=== PATIENT | female | born 1995 | race Hispanic/Latino ===

== ENCOUNTER 2018-11-29 15:36 | Emergency (ER) | payer OTHER, SELFPAY ==
[2018-11-29 16:03] VITALS: BP 103/70; PULSE 68; RESP 20; TEMP 36.6; O2SAT 100
--- NOTE | 2018-11-29 16:10 | DI.US.S_ITS ---
PROCEDURE: US PELVIC COMPLETE INDICATIONS: PAIN TECHNIQUE: Real-time scanning was performed of the pelvic organs, with image documentation. Additional endovaginal scanning was necessary due to incomplete visualization of the adnexal and endometrial structures by transabdominal scanning. COMPARISON: None. FINDINGS: Transabdominal scanning: Limited scanning through the kidneys shows no hydronephrosis. There is small amount of complex free pelvic fluid in the cul-de-sac. Endovaginal scanning: Uterus: Uterus is normal in size at 6.7 x 3.2 x 6.2 cm. The endometrium measures 13.2 mm in combined thickness. Ovaries: There is a 4.3 x 2.7 x 4.1 cm complex cyst in the left ovary. Left ovary measures 5.4 x 4.7 x 6.2 cm. Right ovary is normal in size and echotexture measuring 4.5 x 3.0 x 2.6 cm. IMPRESSION: 1. Thickened endometrial. This finding may be related to menstrual cycle or endometrial hyperplasia. 2. A 4.3 x 2.7 x 4.1 cm complex cyst in the left ovary. Recommend ultrasound followup if clinically indicated. 3. A small amount of complex free fluid in the cul-de-sac. Dictated by: Gary Nagel M.D. on 11/29/2018 at 17:56 Approved by: Gary Nagel M.D. on 11/29/2018 at 18:02
--- NOTE | 2018-11-29 17:01 | ED_ITS ---
HPI - Abdominal Pain General Chief Complaint: Abdominal Pain Stated Complaint: LLQ Pain Time Seen by Provider: 11/29/18 16:10 Source: patient Mode of arrival: ambulatory Limitations: no limitations History of Present Illness HPI narrative: 23-year-old otherwise healthy female sent over from [facility] for evaluation of left lower quadrant abdominal pain. The concern by the provider over on the [place] was that the patient had an ovarian cyst however they did not have ultrasound capability there was concern for ovarian torsion. She had labs performed which were reviewed which were unremarkable to include a test and urinalysis. Patient states she has not had a menstrual cycle in 3 months. She is not currently on control pills. She has never been the past. Denies any vaginal bleeding vaginal discharge or urinary symptoms or GI symptoms. Review of Systems Constitutional Constitutional: Denies fever(s) and Denies headache(s) ENT Ears, Nose, Mouth, and Throat: Denies headache(s) Cardiovascular Cardiovascular: Denies chest pain and Denies dyspnea Respiratory Respiratory: Denies dyspnea Gastrointestinal Gastrointestinal: Reports abdominal pain (Left lower quadrant), Denies change in stool character, Denies nausea and Denies vomiting Genitourinary Genitourinary: Denies dysuria and Denies vaginal discharge Musculoskeletal Musculoskeletal: Denies myalgias and Denies arthralgias Integumentary/Breasts Skin/Breast: Denies lesions and Denies rash Neurologic Neurologic: Denies behavioral changes and Denies headache(s) Psychiatric Psychiatric: Denies behavioral changes Hematologic/Lymphatic Hematologic/Lymphatic: Denies easy bleeding and Denies easy bruising [facility] Medical History Patient denies medical problems (Acute) Social History Smoking Status: Never smoker Social History Smoking Status: Never smoker Exam Initial Vital Signs Initial Vital Signs: Vital Signs Temperature 97.8 F 11/29/18 16:03 Pulse Rate 68 11/29/18 16:03 Respiratory Rate 20 11/29/18 16:03 Blood Pressure 103/70 11/29/18 16:03 Pulse Oximetry 100 11/29/18 16:03 Const General: cooperative, comfortable and well developed Orientation: alert, awake and oriented x3 HENMT Head: normal to inspection and normocephalic Resp Effort & Inspection: normal respiratory effort Cardio Rate: regular rate GI Inspection: non-distended Skin Lesions: no lesions Rashes: no rashes Neuro General: alert and awake Cognition: normal cognition Speech: speech normal Extrem General: normal to inspection and capillary refill normal Psych Appearance: grossly normal and well kempt Course Orders Ordered: ED Orders 11/29/18 16:10 US pelvic complete Stat Vital Signs Vital signs: Vital Signs - 8 hr 11/29/18 16:03 Temperature 97.8 F Pulse Rate 68 Respiratory Rate 20 Blood Pressure 103/70 Pulse Oximetry 100 MDM - Abdominal Pain Medical Records Attestation: I reviewed the patient's medical records. Lab Data Attestation: I reviewed the patient's lab results. Imaging Data US - abdomen: Radiologist's impression: [address] [address] Ultrasound Report Signed Patient: Mervat Chowdhury CMR#: [id number] : 1995Acct:[id number] Age/Sex: 23 / FDate of Service: 11/29/18 Loc: ED Accession Number: [id number] Procedure: US pelvic complete Ordering Provider: Joseluis Dunne D.O. PROCEDURE: US PELVIC COMPLETE INDICATIONS: PAIN TECHNIQUE: Real-time scanning was performed of the pelvic organs, with image documentation. Additional endovaginal scanning was necessary due to incomplete visualization of the adnexal and endometrial structures by transabdominal scanning. COMPARISON: None. FINDINGS: Transabdominal scanning: Limited scanning through the kidneys shows no hydronephrosis. There is small amount of complex free pelvic fluid in the cul-de-sac. Endovaginal scanning: Uterus: Uterus is normal in size at 6.7 x 3.2 x 6.2 cm. The endometrium measures 13.2 mm in combined thickness. Ovaries: There is a 4.3 x 2.7 x 4.1 cm complex cyst in the left ovary. Left ovary measures 5.4 x 4.7 x 6.2 cm. Right ovary is normal in size and echotexture measuring 4.5 x 3.0 x 2.6 cm. IMPRESSION: 1. Thickened endometrial. This finding may be related to menstrual cycle or endometrial hyperplasia. 2. A 4.3 x 2.7 x 4.1 cm complex cyst in the left ovary. Recommend ultrasound followup if clinically indicated. 3. A small amount of complex free fluid in the cul-de-sac. Dictated by: Gary Nagel M.D. on 11/29/2018 at 17:56 Approved by: Gary Nagel M.D. on 11/29/2018 at 18:02 [facility] Narrative Medical decision making narrative: Patient's test and urinalysis were negative at the outside facility. I was able to review these nodes. Her ultrasound today does show a left-sided ovarian cyst however no signs of torsion. We did discuss the use of anti-inflammatories. I did discuss the diagnosis with the patient. Informed her that when she returned home to the [facility] she needed to talk with her primary provider about further workup of her amenorrhea for the past 3 months. Patient was given return precautions and follow-up instructions. She expressed understanding and agreem ent with plan. Discharge Plan Departure Patient Disposition: Home Clinical Impression: Ovarian cyst Qualifiers: Laterality: left Qualified Code(s): N83.202 - Unspecified ovarian cyst, left side Instructions: DI for Ovarian Cyst Activity Restrictions/Additional Instructions: You can take Tylenol and/or ibuprofen for any discomfort. When you return home to the [facility] talk with your primary provider about your lack of a menstrual cycle for the past 3 months. Return to the emergency department for any new or worsening symptoms
[2018-11-29 18:16] VITALS: BP 101/52; PULSE 72; RESP 15; O2SAT 97
== END 2018-11-29 18:22 | disposition home or self-care (01) ==
PROVIDERS: Emergency Provider Emergency Medicine
DX: N83.202 Unspecified ovarian cyst, left side (principal)
CPT/HCPCS: 76830; 76856; 99282; 99284